=== PATIENT | male | born 1940 | race Caucasian/White ===

== ENCOUNTER 2021-03-23 09:28 | Outpatient (CLI) | payer MEDICARE, OTHER, SELFPAY ==
--- NOTE | 2021-03-23 09:30 | XR_ITS ---
WS: [id number] KUB, AP view, 03/23/2021 Clinical Data: UROLITHIASIS Comparison: KUB, 07/09/2018. Findings: No abnormal intraabdominal masses or calcifications are seen. There is no dilatated small bowel or ev idence of obstruction. Fecal material in colon gas obscure detail over both kidneys. There are phleboliths in the true pelvi s. 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 XR/XR KUB [id number] Impression: Negative KUB.
== END 2021-03-23 09:29 | disposition home or self-care (01) ==
PROVIDERS: Visit Provider Urology
DX: N20.9 Urinary calculus, unspecified (principal)
CPT/HCPCS: 74018; 81003